=== PATIENT | male | born 1985 | race Caucasian/White ===

== ENCOUNTER 2018-02-06 14:36 | Emergency (ER) | payer SELFPAY ==
[~2018-02-06] VITALS: Ht 177.8 cm; Wt 70.7 kg
[~2018-02-06 14:36] MED LIST: ALBU8.5H8 IH; CYCL-1 PO; HYDR28CR14 TOP; NO HOME MEDS; OXYC-150 PO; PROM5SYR2 PO
[2018-02-06 14:46] VITALS: BP 120/75
[2018-02-06] MEDS ORDERED: LIDOcaine 1.5% w/epinephrine 1:200,000 5ml ampul IJ ONE (15:10)
[2018-02-06] MEDS ORDERED: CEPH500C5 PO (15:54)
[2018-02-06] MEDS ORDERED: mupirocin 2% ointment 22GM TP STA (15:54)
== END 2018-02-06 16:04 | disposition home or self-care (01) ==
LOC: ER 14:37
DX: L60.0 Ingrowing nail (principal); F12.10 Cannabis abuse, uncomplicated; Z79.899 Other long term (current) drug therapy
CPT/HCPCS: 11750; 99284; A6449; J3490

== ENCOUNTER 2018-10-05 12:54 | Emergency (ER) | payer OTHER ==
[~2018-10-05] VITALS: Ht 177.8 cm; Wt 81.8 kg
[~2018-10-05 12:54] MED LIST changes: +CEPH500C5 PO
[2018-10-05] MEDS ORDERED: TETanus/Pertussis (Acell)/Diphther VAC/PF (Tdap-Adult) 0.5ml syringe IM ONE (13:45)
[2018-10-05] MEDS ORDERED: ondansetron/PF 4mg/2ml inj IV ONE ×2 (13:45→14:55)
[2018-10-05] MEDS ORDERED: normal saline 1000ML IV soln IVB ONE (13:45)
[2018-10-05 14:07] LABS: BASOPHILS % (AUTO) 0.3 % (0-1); EOSINOPHILS # (AUTO) 0.2 X10'3 (0-0.9); EOSINOPHILS % (AUTO) 1.6 % (0-6); HEMATOCRIT 42.1 % (42.0-52.0); HEMOGLOBIN 13.8 g/dl (14.0-17.9); LYMPHOCYTES # (AUTO) 0.9 X10'3 (1.1-4.8); LYMPHOCYTES % (AUTO) 9.6 % (21-51); MEAN CORPUSCULAR HEMOGLOBIN 30.4 PG (27.0-31.0); MEAN CORPUSCULAR HGB CONC 32.9 % (33.0-36.5); MEAN CORPUSCULAR VOLUME 92.6 FL (78-98); MEAN PLATELET VOLUME 8.3 FL (7.4-10.4); MONOCYTES # (AUTO) 0.6 X10'3 (0-0.9); MONOCYTES % (AUTO) 6.3 % (2-12); NEUTROPHILS # (AUTO) 7.8 X10'3 (1.8-7.7); NEUTROPHILS % (AUTO) 82.2 % (42-75); PLATELET COUNT 232 X10'3 (140-440); RED BLOOD COUNT 4.54 X10'6 (4.70-6.10); WHITE BLOOD COUNT 9.5 X10'3 (4.5-11.0)
[2018-10-05 14:21] LABS: ALANINE AMINOTRANSFERASE 35 U/L (12-78); ALBUMIN 4.2 G/DL (3.4-5.0); ALBUMIN/GLOBULIN RATIO 1.4 (1.1-1.5); ALKALINE PHOSPHATASE 51 IU/L (46-116); ANION GAP 9 (8-16); ASPARTATE AMINO TRANSFERASE 18 U/L (10-37); BILIRUBIN,TOTAL 0.6 MG/DL (0.1-1.0); BLOOD UREA NITROGEN 22 MG/DL (7-18); BUN/CREATININE RATIO 22.4 (5.4-32.0); CALCIUM 9.3 MG/DL (8.5-10.1); CHLORIDE 103 MMOL/L (99-107); CREATININE 0.98 MG/DL (0.60-1.10); ETHANOL < 0.010 GM/DL (0.0-0.010); GLUCOSE 157 MG/DL (70-104); LIPASE 60 U/L (73-393); SODIUM 138 MMOL/L (135-145); TOTAL CARBON DIOXIDE 26.3 MMOL/L (24-32); TOTAL PROTEIN 7.3 G/DL (6.4-8.2); eGFR 89 ML/MIN
[2018-10-05] MEDS ORDERED: morphine 2 MG/ML inj. syringe IV ONE (14:55)
[2018-10-05 15:09] VITALS: BP 137/82
== END 2018-10-05 15:32 | disposition short-term general hospital (02) ==
LOC: ER 12:54
DX: S02.91XA Unspecified fracture of skull, initial encounter for closed fracture (principal); S01.81XA Laceration without foreign body of other part of head, initial encounter; M25.561 Pain in right knee; F14.10 Cocaine abuse, uncomplicated; F41.9 Anxiety disorder, unspecified; H53.149 Visual discomfort, unspecified; Y08.89XA Assault by other specified means, initial encounter; Y93.89 Activity, other specified; Y92.89 Other specified places as the place of occurrence of the external cause; Y99.8 Other external cause status
CPT/HCPCS: 29105; 36415; 70450; 70486; 71045; 72125; 73080; 73560; 80053; 80320; 83690; 85025; 90471; 90715; 96374; 96375; 96376; 99285; J2270; J2405; J7030; 99284

== ENCOUNTER 2020-03-06 02:57 | Emergency (ER) | payer OTHER ==
[~2020-03-06] VITALS: Ht 175.3 cm; Wt 77.3 kg
[~2020-03-06 02:57] MED LIST changes: -CEPH500C5 PO
[2020-03-06 02:59] VITALS: BP 148/79
[2020-03-06] MEDS ORDERED: TETanus/Pertussis (Acell)/Diphther VAC/PF (Tdap-Adult) 0.5ml syringe IMVAC ONE (03:05)
[2020-03-06] MEDS ORDERED: LIDOcaine 1% W/epiNEPHrine 1:200,000 10ml vial IJ ONE (03:05)
== END 2020-03-06 03:45 | disposition home or self-care (01) ==
LOC: ER 02:57
DX: S61.223A Laceration with foreign body of left middle finger without damage to nail, initial encounter (principal); Z79.899 Other long term (current) drug therapy; W26.0XXA Contact with knife, initial encounter; Y93.89 Activity, other specified; Y92.89 Other specified places as the place of occurrence of the external cause; Y99.8 Other external cause status
CPT/HCPCS: 64450; 90471; 90715; 99284